=== PATIENT | female | born 1970 | race American Indian/Alaskan Native ===

== ENCOUNTER 2016-04-04 08:02 | Outpatient (CLI) | payer OTHER ==
--- NOTE | 2016-04-04 11:11 | Ultrasound Report ---
ULTRASOUND PELVIS COMPLETE - TRANSABDOMINAL AND TRANSVAGINAL: INDICATION: LLQ pain. Hysterectomy in 2008. COMPARISON: None similar. FINDINGS: Transabdominal and transvaginal pelvic sonography demonstrates surgically absent uterus. No significant free fluid. Physiologic bilateral ovaries, estimated at 2.7 x 1.7 x 2 cm on the right and 2.5 x 1.1 x 1.5 cm on the left with few small bilateral follicular cysts measuring up to 1.4 cm on the right. CONCLUSION: Hysterectomy without acute pelvic sonographic abnormality, as described. Thank you for the opportunity to participate in this patient's care.
== END 2016-04-04 08:03 | disposition home or self-care (01) ==
LOC: US 08:02
PROVIDERS: ATTEND Obstetrics & Gynecology Gynecology
DX: N83.202 Unspecified ovarian cyst, left side (principal); N83.201 Unspecified ovarian cyst, right side; R10.32 Left lower quadrant pain; R10.2 Pelvic and perineal pain; Z90.710 Acquired absence of both cervix and uterus
CPT/HCPCS: 76830; 76856

== ENCOUNTER 2016-07-27 10:49 | Outpatient (CLI) | payer OTHER ==
[2016-07-27 11:44] LABS: Albumin/Globulin Ratio 1.3 %; BUN/Creatinine Ratio 9.16; Bilirubin,Total 0.4 mg/dL (0.1-1.2); Calcium 8.9 mg/dL (8.4-10.2); Chloride 105.7 mmol/L (98-107); Potassium 4.1 mmol/L (3.6-5.0); Total Protein 7.1 g/dL (6.3-8.2)
--- NOTE | 2016-07-27 12:51 | Cat Scan Report ---
CTA CHEST INDICATION: Assess for pulmonary embolism. COMPARISON: None similar. FINDINGS: Chest CTA performed following intravenous administration of 100 cc of Omnipaque 350. Rotational MIP's also obtained. Top normal heart size. No effusions. No aortic aneurysm, dissection or suspicious pulmonary arterial filling defects. No size significant adenopathy. Normal airway. Unremarkable thyroid. Clear lungs. Mild nonspecific distal esophageal wall thickening, not excluded for gastroesophageal reflux and/or hiatal hernia, amongst others. Images through included upper abdomen reveal no acute abnormality. Left nephrectomy changes. Unremarkable bones. CONCLUSION: No CT evidence of pulmonary embolism with few incidental findings, including left nephrectomy, as described. Thank you for the opportunity to participate in this patient's care.
[2016-07-27 14:33] LABS: ISTAT Base Excess -4; ISTAT HCO3 21.3; ISTAT PCO2 34.4 (35-45); ISTAT PO2 81 (80-105); ISTAT SO2 96; ISTAT TCO2 22
[2016-07-31 00:07] LABS: ANA Titer 1:40 (Negative)
== END 2016-07-27 10:50 | disposition home or self-care (01) ==
LOC: CT 10:49
PROVIDERS: ATTEND Internal Medicine
DX: I26.99 Other pulmonary embolism without acute cor pulmonale (principal); L93.0 Discoid lupus erythematosus; Z90.5 Acquired absence of kidney
CPT/HCPCS: 36415; 36600; 71275; 80053; 80061; 82164; 82803; 84439; 84443; 86038; 86618; Q9967